=== PATIENT | female | born 1995 | race African-American/Black ===

== ENCOUNTER 2020-01-29 15:22 | Observation (INO) | payer OTHER, SELFPAY ==
[2020-01-29] VITALS (9 sets, daily range): BP systolic 103–126; BP diastolic 65–89; PULSE 91–116; TEMP 36.8; BMI 27.3
--- NOTE | 2020-01-29 16:26 | OBADM ---
This patient, Layla Barger, admitted to the OB room Labor/Delivery/Recovery 103 for observation. Patient/family oriented to hospital policies and general routines including ID bracelet, bed and alarms, visiting hours, pain management, procedures, bathroom and other care routines, personal items, smoking policy, room service/diet, and visiting hours. Patient/Family are encouraged to report perceived risks to care and to ask questions if they do not understand what they are told or what they should do.
--- NOTE | 2020-02-05 07:07 | PM.OBTRLD ---
OB - Triage/Final Diagnosis Visit Information Reason for evaluation: threatened labor
== END 2020-01-29 17:55 | disposition home or self-care (01) ==
PROVIDERS: Admitting Provider Obstetrics & Gynecology; PCP Obstetrics & Gynecology; Visit Provider Obstetrics & Gynecology
DX: O47.1 False labor at or after 37 completed weeks of gestation (principal); Z3A.41 41 weeks gestation of pregnancy
CPT/HCPCS: G0378; G0379

== ENCOUNTER 2020-01-30 16:46 | Inpatient (IN) | payer OTHER, SELFPAY ==
[2020-01-30] VITALS (11 sets, daily range): BP systolic 97–117; BP diastolic 59–89; PULSE 82–252; TEMP 36.4–37.2; BMI 27.3
--- NOTE | 2020-01-30 16:46 | LDADM ---
This patient, Layla Barger, was admitted to Labor/Delivery/Recovery 106 on 01/30/20 at 16:46. Plans for labor, pain management and were discussed with patient. Patient/family oriented to hospital policies and general routines including ID bracelet, bed and alarms, visiting hours, pain management, procedures, bathroom and other care routines, personal items, smoking policy, room service/diet and guest tray routines, security routines, and visiting hours. Patient/Family are encouraged to report perceived risks to care and to ask questions if they do not understand what they are told or what they should do. See OBIX for further documentation.
[2020-01-30] MEDS: AMPICILLIN 2 GM/NS 100 ML 2 GM/100 ML BAG IVPB (20:01)
[2020-01-30] MEDS: LACTATED RINGERS 1,000 ML 125 ML IV CONT (20:02)
[2020-01-30 20:08] LABS: Basophils Percent Auto 0.2 % (0.2-1.2); Hematocrit 38.9 % (37.0-47.0); Immature Granulocyte Absolute 0.07 K/mm3 (0.00-0.031); Immature Granulocyte Percent A 0.6 % (0-0.5); Lymphocytes Absolute Auto 0.95 K/mm3 (0.9-3.2); Lymphocytes Percent Auto 7.9 % (18.3-44.2); Mean Corpuscular HGB Conc 30.8 g/dl (32-36); Mean Corpuscular Hemoglobin 25.1 pg (26-34); Mean Corpuscular Volume 81.4 fl (80-100); Mean Platelet Volume 10.3 fl (7.4-10.4); Monocytes Absolute Auto 0.6 K/mm3 (0.1-0.6); Monocytes Percent Auto 4.8 % (2.6-8.5); Neutrophils Absolute Auto 10.3 K/mm3 (1.3-6.7); Neutrophils Percent Auto 86.5 % (45.5-73.1); Platelet Count Result 245 k/mm3 (150-375); Red Blood Count 4.78 M/mm3 (4.2-5.4); Red Cell Distribution Width 18.7 % (11.5-14.5)
[2020-01-30 20:51] LABS: Hepatitis B Surface Antigen Negative (Negative)
[2020-01-30 21:01] LABS: HIV 1/2 Ab P24 Ag Result Negative (Negative)
[2020-01-30 21:08] LABS: Rubella IgG Antibody 42.9 IU/ML
[2020-01-30] MEDS: OXYTOCIN 30 UNITS/NS 500 ML 30 UNITS/500 ML BAG 999 UNITS IV CONT (21:32)
--- NOTE | 2020-01-30 21:55 | WPDHPUPDATE1 ---
History and Physical Update Update Date/Time: 01/30/20 21:55 History and Physical has been reviewed, including an updated exam of the patient. There are NO changes in the patient's condition. Risks, benefits, and alternatives have been discussed and questions answered. Patient agrees to proceed with procedure.
--- NOTE | 2020-01-30 21:55 | WPDOBADMIT ---
Obstetrics - Admit Note Admission Note: record reviewed. No pertinent additions to the history and/or any subsequent changes in the physical findings that are not consistent with the expected course of the were found. Additions to the history and/or subsequent changes in the physical findings follow. None.
--- NOTE | 2020-01-30 21:58 | P.PCNOB_ITS ---
OB - Delivery Note Procedure Delivery date: 01/30/20 Route of delivery: Laceration description: Perineal - 2nd Degree Delivery repair: chromic Specimen: Yes (placenta) Estimated blood loss (mL): 30 Anesthesia type: Local Disposition: floor Narrative: Patient prepped and draped in the usual manner for this procedure. Maternal expulsive efforts delivered vertex in occiput posterior position. Rest of baby was readily delivered without difficulty. Placenta delivered spontaneously. Cervix exam vulva were inspected with second-degree laceration noted. [place] of the vaginal laceration was located and using 2 0 chromic in a running interlocking manner the vaginal mucosa was approximated. Deep tissue was also approximated in interlocking sutures with 2 0 chromic. A subcuticular manner approximating the perineal tissue. There was minimal bleeding good approximation was noted at this point seizure was considered terminated. The postop condition mother and baby both excellent. Baby Weeks of gestation at delivery: 41 Infant gender: Male Weight (pounds): 6 Weight (ounces): 8 presentation: vertex position: Right Occiput Posterior Placenta delivery description: Spontaneous cord vessel description: 3 Vessels score one minute: 8 score five minutes: 9
[2020-01-30] MEDS: OXYTOCIN 30 UNITS/NS 500 ML 30 UNITS/500 ML BAG 125 UNITS IV CONT (22:50)
[2020-01-30] MEDS: IBUPROFEN 600 MG TABLET PO (23:55)
[2020-01-31] VITALS: BP 109/72; PULSE 124
[2020-01-31] MEDS: BENZOCAINE 20% AER SPR (*SP) 56 GM CAN 1 SPRAY TOPICAL (00:07)
[2020-01-31] MEDS: WITCH HAZEL 40 PADS 1 PAD TOPICAL (00:11)
[2020-01-31 00:18] VITALS: BP 124/74; PULSE 149
[2020-01-31 00:45] VITALS: BP 106/78; PULSE 117; RESP 12; TEMP 36.7
[2020-01-31 01:00] VITALS: BP 116/79; PULSE 119; RESP 12
--- NOTE | 2020-01-31 01:16 | PC.NURSE ---
0027 Pt to floor accompanied by baby in crib and staff. plan of care and floor routines explained to pt and she voices understanding. Mom encouraged to make needs and concerns known to staff
[2020-01-31 06:18] LABS: Hematocrit 26.4 % (37.0-47.0); Hemoglobin 8.3 g/dL (12.0-15.0)
[2020-01-31 07:39] VITALS: BP 109/75; PULSE 113; RESP 18; TEMP 36.9; O2SAT 99
[2020-01-31] MEDS: MULTIVIT/MIN/PREN/FOL AC/IRON TABLET 1 TAB PO (10:29)
[2020-01-31 10:31] LABS: Rapid Plasma Reagin Non-Reactive (NonReactive)
--- NOTE | 2020-01-31 11:33 | P.DS_ITS ---
OB - DS: Summary OB Procedures : None OB Procedures Intrapartum: Spontaneous Vag Delivery OB Procedures: : None Time Spent with Patient Time attestation: Total time spent providing and/or coordinating discharge services: DS: Data Data Completed and Pending Pending studies at discharge: Pending at discharge 01/31/20 07:44 Surgical [PTH] 2138 Labs on day of discharge: Labs from last 24 hours 01/31/20 01/30/20 01/30/20 05:44 20:02 20:02 WBC RBC Hgb 8.3 L D Hct 26.4 L MCV MCH MCHC RDW Plt Count MPV Immature Gran % (Auto) Neut % (Auto) Lymph % (Auto) [place] % (Auto) Eos % (Auto) Baso % (Auto) Lymph # (Auto) [place] # (Auto) Eos # (Auto) Baso # (Auto) Abs Immat Gran (auto) Absolute Neuts (auto) Absolute Nucleated RBC Nucleated RBC % RPR Hep Bs Antigen Negative HIV 1&2 Ab/P24 Ag 4thGn Rubella IgG Antibody Blood Type B Positive Antibody Screen Negative 01/30/20 01/30/20 01/30/20 20:02 20:02 20:02 WBC 12.0 H RBC 4.78 Hgb 12.0 Hct 38.9 MCV 81.4 MCH 25.1 L MCHC 30.8 L RDW 18.7 H Plt Count 245 MPV 10.3 Immature Gran % (Auto) 0.6 H Neut % (Auto) 86.5 H Lymph % (Auto) 7.9 L [place] % (Auto) 4.8 Eos % (Auto) 0.0 Baso % (Auto) 0.2 Lymph # (Auto) 0.95 [place] # (Auto) 0.6 Eos # (Auto) 0.0 Baso # (Auto) 0.0 Abs Immat Gran (auto) 0.07 H Absolute Neuts (auto) 10.3 H Absolute Nucleated RBC 0.0 Nucleated RBC % 0.0 RPR Non-reactive Hep Bs Antigen HIV 1&2 Ab/P24 Ag 4thGn Rubella IgG Antibody 42.9 Blood Type Antibody Screen 01/30/20 20:02 WBC RBC Hgb Hct MCV MCH MCHC RDW Plt Count MPV Immature Gran % (Auto) Neut % (Auto) Lymph % (Auto) [place] % (Auto) Eos % (Auto) Baso % (Auto) Lymph # (Auto) [place] # (Auto) Eos # (Auto) Baso # (Auto) Abs Immat Gran (auto) Absolute Neuts (auto) Absolute Nucleated RBC Nucleated RBC % RPR Hep Bs Antigen HIV 1&2 Ab/P24 Ag 4thGn Negative Rubella IgG Antibody Blood Type Antibody Screen Discharge Plan Discharge Discharging Clinician: Gilberto Mcnulty Anticipated Discharge Date/Time: 02/01/20 11:00 Patient Disposition: Home, Self-Care Activity: as tolerated Diet: as tolerated Patient Instructions: Antibiotic Form Stand Alone Forms: General Discharge Information Follow-up/Referrals: UNKNOWN,DOCTOR [Primary Care Provider] - 3 Weeks Discharge Medications: New ibuprofen 600 mg Tablet 600 mg PO Q6H PRN (Reason: Cramping) Qty: 30 RF: 0 Continued
--- NOTE | 2020-01-31 11:39 | PM.OBDSVD ---
OB - DS: Summary OB Procedures : None OB Procedures Intrapartum: Spontaneous Vag Delivery OB Procedures: : None Time Spent with Patient Time attestation: Total time spent providing and/or coordinating discharge services: DS: Data Data Completed and Pending Pending studies at discharge: Pending at discharge 01/31/20 07:44 Surgical [PTH] 2138 Labs on day of discharge: Labs from last 24 hours 01/31/20 01/30/20 01/30/20 05:44 20:02 20:02 WBC RBC Hgb 8.3 L D Hct 26.4 L MCV MCH MCHC RDW Plt Count MPV Immature Gran % (Auto) Neut % (Auto) Lymph % (Auto) [place] % (Auto) Eos % (Auto) Baso % (Auto) Lymph # (Auto) [place] # (Auto) Eos # (Auto) Baso # (Auto) Abs Immat Gran (auto) Absolute Neuts (auto) Absolute Nucleated RBC Nucleated RBC % RPR Hep Bs Antigen Negative HIV 1&2 Ab/P24 Ag 4thGn Rubella IgG Antibody Blood Type B Positive Antibody Screen Negative 01/30/20 01/30/20 01/30/20 20:02 20:02 20:02 WBC 12.0 H RBC 4.78 Hgb 12.0 Hct 38.9 MCV 81.4 MCH 25.1 L MCHC 30.8 L RDW 18.7 H Plt Count 245 MPV 10.3 Immature Gran % (Auto) 0.6 H Neut % (Auto) 86.5 H Lymph % (Auto) 7.9 L [place] % (Auto) 4.8 Eos % (Auto) 0.0 Baso % (Auto) 0.2 Lymph # (Auto) 0.95 [place] # (Auto) 0.6 Eos # (Auto) 0.0 Baso # (Auto) 0.0 Abs Immat Gran (auto) 0.07 H Absolute Neuts (auto) 10.3 H Absolute Nucleated RBC 0.0 Nucleated RBC % 0.0 RPR Non-reactive Hep Bs Antigen HIV 1&2 Ab/P24 Ag 4thGn Rubella IgG Antibody 42.9 Blood Type Antibody Screen 01/30/20 20:02 WBC RBC Hgb Hct MCV MCH MCHC RDW Plt Count MPV Immature Gran % (Auto) Neut % (Auto) Lymph % (Auto) [place] % (Auto) Eos % (Auto) Baso % (Auto) Lymph # (Auto) [place] # (Auto) Eos # (Auto) Baso # (Auto) Abs Immat Gran (auto) Absolute Neuts (auto) Absolute Nucleated RBC Nucleated RBC % RPR Hep Bs Antigen HIV 1&2 Ab/P24 Ag 4thGn Negative Rubella IgG Antibody Blood Type Antibody Screen Discharge Plan Discharge Discharging Clinician: Gilberto Mcnulty Anticipated Discharge Date/Time: 02/01/20 11:00 Patient Disposition: Home, Self-Care Activity: as tolerated Diet: as tolerated Patient Instructions: Antibiotic Form Stand Alone Forms: General Discharge Information Follow-up/Referrals: UNKNOWN,DOCTOR [Primary Care Provider] - 3 Weeks Discharge Medications: New ibuprofen 600 mg Tablet 600 mg PO Q6H PRN (Reason: Cramping) Qty: 30 RF: 0 Continued PNV-DHA 27 mg iron-1 mg -300 mg Capsule 1 cap PO DAILY RF: 0 Date of admission: 01/30/20 16:46 Primary Care Provider: UNKNOWN,DOCTOR Admitting Provider: Gilberto Mcnutly Attending physician on admission: Gilberto Mcnulty
--- NOTE | 2020-01-31 13:55 | PC.NURSE ---
1400 continued: Infant attempted to breast several times without nipple shield, was unable to latch and draw nipple in. did may a few eager attempts, before latching with shield.
--- NOTE | 2020-01-31 14:00 | PC.NURSE ---
Mother called out for assist with feeding. Mother states she is using the nipple shield for most feedings. is sleepy this feeding. Reviewed infant may be sleepy and need to be stimulate to wake after circumcision. Discussed nipple shield precautions and possible complications. Instructions given on application and cleaning of shield. Patient able to return demonstration on proper application of shield. Discussed the need to initiate pumping if continues to nurse with the shield. Patient verbalizes understanding. Reviewed infant feeding cues, frequencies, duration of feedings, feeding elimination flow sheet, and signs of adequate intake. Demonstrated stimulation techniques to wake for feeding. Assisted with to breast. Reviewed positioning/alignment in football, holding breast in C hold and guided asymmetrical latch on. Discussed rational for each. After several attempts over 15 minutes, was able to latch correctly. nursed eagerly, with steady draws and occasional swallowing noted. Reviewed signs of a correct latch, effective nursing and suck swallow ratio. was able to maintain latch without discomfort to mother. Nipple care reviewed. Instructed mother to call out for RN assistance if she is unable to latch infant for feeding or she has discomfort with nursing. Instructed feeding should be initiated three hours from start of last feeding or if feeding cues are noted before. Mother voiced understanding of information shared.
--- NOTE | 2020-01-31 14:35 | PC.NURSE ---
Breast pump provided due to nipple shield use. Instructions given on breast pump care and usage, pumping schedule, nipple care, and collection and storage of breast milk. Encouraged [id number], breast massage and manual expression to stimulate supply. Assessed patient for correct flange size, placement and draw. Patient verbalizes and demonstrates understanding of instructions.
--- NOTE | 2020-01-31 20:22 | PM.OBTRLD ---
OB - Triage/Final Diagnosis Visit Information Reason for evaluation: threatened labor Evaluation Laboratory results: Laboratory Tests 01/30/20 01/30/20 01/30/20 20:02 20:02 20:02 WBC 12.0 H RBC 4.78 Hgb 12.0 Hct 38.9 MCV 81.4 MCH 25.1 L MCHC 30.8 L RDW 18.7 H Plt Count 245 MPV 10.3 Immature Gran % (Auto) 0.6 H Neut % (Auto) 86.5 H Lymph % (Auto) 7.9 L [place] % (Auto) 4.8 Eos % (Auto) 0.0 Baso % (Auto) 0.2 Lymph # (Auto) 0.95 [place] # (Auto) 0.6 Eos # (Auto) 0.0 Baso # (Auto) 0.0 Abs Immat Gran (auto) 0.07 H Absolute Neuts (auto) 10.3 H Absolute Nucleated RBC 0.0 Nucleated RBC % 0.0 RPR Hep Bs Antigen HIV 1&2 Ab/P24 Ag 4thGn Negative Rubella IgG Antibody 42.9 Blood Type Antibody Screen 01/30/20 01/30/20 01/30/20 20:02 20:02 20:02 WBC RBC Hgb Hct MCV MCH MCHC RDW Plt Count MPV Immature Gran % (Auto) Neut % (Auto) Lymph % (Auto) [place] % (Auto) Eos % (Auto) Baso % (Auto) Lymph # (Auto) [place] # (Auto) Eos # (Auto) Baso # (Auto) Abs Immat Gran (auto) Absolute Neuts (auto) Absolute Nucleated RBC Nucleated RBC % RPR Non-reactive Hep Bs Antigen Negative HIV 1&2 Ab/P24 Ag 4thGn Rubella IgG Antibody Blood Type B Positive Antibody Screen Negative 01/31/20 05:44 WBC RBC Hgb 8.3 L D Hct 26.4 L MCV MCH MCHC RDW Plt Count MPV Immature Gran % (Auto) Neut % (Auto) Lymph % (Auto) [place] % (Auto) Eos % (Auto) Baso % (Auto) Lymph # (Auto) [place] # (Auto) Eos # (Auto) Baso # (Auto) Abs Immat Gran (auto) Absolute Neuts (auto) Absolute Nucleated RBC Nucleated RBC % RPR Hep Bs Antigen HIV 1&2 Ab/P24 Ag 4thGn Rubella IgG Antibody Blood Type Antibody Screen Vital signs: Vital Signs - 24 hr 01/30/20 20:41 01/30/20 21:00 01/30/20 21:33 Temperature 37.2 C 36.4 C L Pulse Rate 100 Respiratory Rate Blood Pressure 117/78 Pulse Oximetry 01/30/20 22:09 01/30/20 22:15 01/30/20 22:30 Temperature Pulse Rate 141 H 148 H 82 Respiratory Rate Blood Pressure 111/71 101/73 103/87 Pulse Oximetry 01/30/20 22:45 01/30/20 23:00 01/30/20 23:15 Temperature Pulse Rate 252 H 137 H 120 H Respiratory Rate Blood Pressure 102/89 97/59 L 100/66 Pulse Oximetry 01/30/20 23:30 01/30/20 23:45 01/31/20 00:00 Temperature Pulse Rate 125 H 125 H 124 H Respiratory Rate Blood Pressure 109/68 98/67 L 109/72 Pulse Oximetry 01/31/20 00:18 01/31/20 00:45 01/31/20 01:00 Temperature 36.7 C Pulse Rate 149 H 117 H 119 H Respiratory Rate 12 12 Blood Pressure 124/74 106/78 116/79 Pulse Oximetry 01/31/20 07:39 Temperature 36.9 C Pulse Rate 113 H Respiratory Rate 18 Blood Pressure 109/75 Pulse Oximetry 99
[2020-01-31 20:30] VITALS: BP 104/61; PULSE 116; RESP 16; TEMP 36.8; O2SAT 98
[2020-02-01 07:37] VITALS: BP 108/63; PULSE 94; RESP 16; TEMP 36.9; O2SAT 99
--- NOTE | 2020-02-01 11:30 | PC.NURSE ---
Parents continue to struggle with feeding freq for infant. Mother reports it can take up to 40 minutes to get in correct positioning/alignment for feeding. Mother states is sleepy and does not always latch quickly and may take up to 30 minutes to get to latch. Mother is feeding every 4-5 hours, reviewed needs to be fed every 3 hours if , before if feeding cues are noted. Reviewed stimulation of milk supply, reviewing mother needs to stimulate breasts every 2-3 hours for milk supply. Suggested mother initiate supplementation of 15-20 mls EBM/formula after each /attempt every three hours. Parents are in agreement of feeding plan. While FOB is supplementing , mother will pump for 10-15 minutes. Assisted mother with a pump thru her insurance and assisted parents with supplementation of infant. Stressed the importance of a regular feeding plan and waking infant to feed if needed. is currently meeting outcomes for weight, output, jaundice and feeding frequencies. Stressed to keep accurate records of all feeding/elimination on blue flowsheet provided. Advised parents not to discontinue supplementation, until infant is observed feeding by WIC or follow up RN. Mother states she feels confident to continue feeding plan stated above at home. Reviewed transition to breast milk, signs of adequate intake, and engorgement/relief. Instructed to call ICP if intake/output less than required. Reviewed regular medications mother is taking. Information provided per Arpita. Reviewed community resources on the [employer] website and in the Mom/Baby guide. Information on outpatient services provided. Mother has no further questions at this time.
--- NOTE | 2020-02-01 18:31 | PC.NURSE ---
Patient viewed the discharge video Mother & Baby Care, The First Two Weeks . Patient was given the opportunity and encouraged to ask questions. Patient verbalized understanding of information shared and has been given the mother/baby guide for home reference.
--- NOTE | 2020-02-03 07:00 | PM.OBDSVD ---
DS: Diagnosis Admitting Diagnosis Admitting Diagnosis: Encounter for supervision of normal , unspecified, third trimester OB - DS: Summary OB Procedures : None OB Procedures Intrapartum: Spontaneous Vag Delivery OB Procedures: : None Time Spent with Patient Time attestation: Total time spent providing and/or coordinating discharge services: DS: Data Data Completed and Pending Completed studies during hospitalization: Pending at discharge 01/31/20 07:44 Surgical [PTH] 2138 Discharge Plan Discharge Discharging Clinician: Gilberto Mcnulty Anticipated Discharge Date/Time: 02/01/20 11:00 Patient Disposition: Home, Self-Care Activity: as tolerated Diet: as tolerated Discharge Instructions: Education: Mom and Baby Guide Given to: Patient Follow-Up: Call your delivering provider's office for an appointment to be seen in: 3 weeks [facility]. Appointment Date/Time: Friday02/02/2020 at 11:00 am Call [phone] if you are unable to keep your appointment time. BREAST CARE: 1. Wear a snug supportive bra. 2. For engorgement discomfort: Breast Feeding: A. Apply warm moist washcloths B. Express milk as needed to relieve engorgement C. Wear loose clothing Bottle Feeding: A. May apply ice packs 3. For sore nipples: A. Identify correct latch-on B. Apply warm moist washcloths before and after nursing C. Air dry nipples after nursing D. May apply Lansinoh cream to nipples EPISIOTOMY/PERINEAL CARE: 1. Until bleeding stops, use your janell bottle after urinating 2. Change your pad frequently throughout the day 3. You may take sitz baths several times a day (run warm water and sit in bathtub for 20 minutes.) Do NOT bathe in the water 4. No tub baths until seen by your physician - You may shower ACTIVITY: 1. Rest as much as possible. 2. Do not exercise or lift anything heavier than your baby (such as laundry or other children.) 3. Avoid stairs or driving as much as possible. 4. Do not put anything into the vagina. No douching, tampons, or sexual activity until seen by physician. NOTIFY PHYSICIAN IF YOU HAVE ANY QUESTIONS OR IF ANY OF THE FOLLOWING SYMPTOMS OCCUR: 1. If your episiotomy or incision becomes red, swollen, or more painful than what you have experienced in the hospital. 2. If your vaginal bleeding becomes foul smelling. 3. If your vaginal bleeding becomes more heavy than a period or if your bleeding changes from pink to bright red. However, you may pass an occasional walnut-sized clot once or twice for the first week . 4. If you experience a sharp, shooting pain in you calves. 5. If you discover a hard, reddened area on your breast or if you experience flu-like symptoms. DIET: 1. Eat regular, well-balanced meals. 2. Drink plenty of fluids daily. If , drink to thirst. Follow-up/Referrals: UNKNOWN,DOCTOR [Primary Care Provider] - 3 Weeks Discharge Medications: New ibuprofen 600 mg Tablet 600 mg PO Q6H PRN (Reason: Cramping) Qty: 30 RF: 0 Continued PNV-DHA 27 mg iron-1 mg -300 mg Capsule 1 cap PO DAILY RF: 0 Date of admission: 01/30/20 16:46 Primary Care Provider: UNKNOWN,DOCTOR Admitting Provider: Gilberto Mcnulty Discharge Date/Time: 02/01/20 21:30 Attending physician on admission: Gilberto Mcnulty
--- NOTE | 2020-02-03 07:01 | PM.OBTRLD ---
OB - Triage/Final Diagnosis Visit Information Reason for evaluation: threatened labor Evaluation Laboratory results: Laboratory Tests 01/30/20 01/30/20 01/30/20 20:02 20:02 20:02 WBC 12.0 H RBC 4.78 Hgb 12.0 Hct 38.9 MCV 81.4 MCH 25.1 L MCHC 30.8 L RDW 18.7 H Plt Count 245 MPV 10.3 Immature Gran % (Auto) 0.6 H Neut % (Auto) 86.5 H Lymph % (Auto) 7.9 L [place] % (Auto) 4.8 Eos % (Auto) 0.0 Baso % (Auto) 0.2 Lymph # (Auto) 0.95 [place] # (Auto) 0.6 Eos # (Auto) 0.0 Baso # (Auto) 0.0 Abs Immat Gran (auto) 0.07 H Absolute Neuts (auto) 10.3 H Absolute Nucleated RBC 0.0 Nucleated RBC % 0.0 RPR Hep Bs Antigen HIV 1&2 Ab/P24 Ag 4thGn Negative Rubella IgG Antibody 42.9 Blood Type Antibody Screen 01/30/20 01/30/20 01/30/20 20:02 20:02 20:02 WBC RBC Hgb Hct MCV MCH MCHC RDW Plt Count MPV Immature Gran % (Auto) Neut % (Auto) Lymph % (Auto) [place] % (Auto) Eos % (Auto) Baso % (Auto) Lymph # (Auto) [place] # (Auto) Eos # (Auto) Baso # (Auto) Abs Immat Gran (auto) Absolute Neuts (auto) Absolute Nucleated RBC Nucleated RBC % RPR Non-reactive Hep Bs Antigen Negative HIV 1&2 Ab/P24 Ag 4thGn Rubella IgG Antibody Blood Type B Positive Antibody Screen Negative 01/31/20 05:44 WBC RBC Hgb 8.3 L D Hct 26.4 L MCV MCH MCHC RDW Plt Count MPV Immature Gran % (Auto) Neut % (Auto) Lymph % (Auto) [place] % (Auto) Eos % (Auto) Baso % (Auto) Lymph # (Auto) [place] # (Auto) Eos # (Auto) Baso # (Auto) Abs Immat Gran (auto) Absolute Neuts (auto) Absolute Nucleated RBC Nucleated RBC % RPR Hep Bs Antigen HIV 1&2 Ab/P24 Ag 4thGn Rubella IgG Antibody Blood Type Antibody Screen
== END 2020-02-01 21:30 | disposition home or self-care (01) | DRG 560 ==
LOC: ANHLDR 19:24 → ANHOB2 01-31 00:31
PROVIDERS: Admitting Provider Obstetrics & Gynecology; Visit Provider Obstetrics & Gynecology
DX: O70.1 Second degree perineal laceration during delivery (principal); Z37.0 Single live birth; Z3A.41 41 weeks gestation of pregnancy
CPT/HCPCS: 36415; 85014; 85018; 85025; 86592; 86703; 86762; 86850; 86900; 86901; 87340; 88307; A9270; G0432; J0290; J2590; J7120

== ENCOUNTER 2022-02-26 13:05 | Outpatient (CLI) | payer OTHER, SELFPAY ==
--- NOTE | ~2022-02-26 | US_ITS ---
EXAMINATION: US OB follow up DATE: 02/26/2022 13:46 INDICATION: Encounter for supervision of normal during second trimester TECHNIQUE: Real-time ultrasound of the pelvis was performed. The interpreting radiologist was not pre sent for the study. COMPARISON: None. FINDINGS: There is a single living fetus in breech presentation. The placenta is anterior with caudal margin 2 .3 cm from the internal cervical os. heart rate is 167 beats per minute (bpm). The amniotic flu id volume is subjectively normal. The following biometric data were obtained: BPD: 3.6 cm -> 17 weeks 0 days Head circumference: 13.5 cm -> 17 weeks 0 days Abdominal circumference: 11.4 cm -> 17 weeks 1 days Femur length: 2.4 cm -> 17 weeks 1 days These measurements are concordant. Head circumference to abdominal circumference ratio: 1.19 (normal range 1.07-1.29). Estimated weight: 184 g (+/-) 28 g or 6 oz. (+/-) 1 oz. IMPRESSION: 1. Single living fetus in breech presentation with heart rate of 167 bpm. 2. Gestational age by ultrasound of 17 weeks 1 day(s) +/- 1 week(s) 1 day(s) with ultrasound estimate d date of delivery (FERN) of 08/05/2022. Estimated weight is 37th percentile by Hadlock criteria when 08/04/2022 is used as the EFRN. Please correlate with clinical information or earlier ultrasounds for most accurate FERN. 3. Low-lying anterior placenta with caudal margin 2.3 cm from the internal cervical os. Reviewed, dictated and finalized at location B. IMPRESSION: 1. Single living fetus in breech presentation with heart rate of 167 bpm. 2. Gestational age by ultrasound of 17 weeks 1 day(s) +/- 1 week(s) 1 day(s) wi th ultrasound estimated date of delivery (FERN) of 08/05/2022. Estimated we ight is 37th percentile by Hadlock criteria when 08/04/2022 is used as the FERN. Please correlate with clinical information or earlier ultrasounds for most accu rate FERN. 3. Low-lying anterior placenta with caudal margin 2.3 cm from the internal cerv ical os.
== END 2022-02-26 13:06 | disposition home or self-care (01) ==
LOC: ANHIMG 13:09
PROVIDERS: PCP Internal Medicine; Visit Provider Obstetrics & Gynecology
DX: O44.42 Low lying placenta NOS or without hemorrhage, second trimester (principal); Z3A.17 17 weeks gestation of pregnancy
CPT/HCPCS: 76816

== ENCOUNTER 2022-04-12 16:48 | Outpatient (CLI) | payer OTHER, SELFPAY ==
--- NOTE | ~2022-04-12 | US_ITS ---
US OB /maternal detail DATE: 04/12/2022 17:39 INDICATION: Normal supervision TECHNIQUE: Real-time imaging and Doppler analysis COMPARISON: 02/26/2022 obstetrical ultrasound FINDINGS: Live wagoner intrauterine gestation, fetus active and in variable presentation during the examination. Anterior placenta. Subjectively normal amount of amniotic fluid. No cerebral ventriculomegaly. Face and lips appear normal. The cerebellum appears normal. Normal cisterna magna. 4 chamber heart with normal left and right ventricular outflow tracts. diaphragm is intact. Fluid is demonstrated in the stomach and urinary bladder. The kidney s appear normal without hydronephrosis. Three-vessel umbilical cord with normal appearing insertion a t abdominal wall. extremities are intact. Biparietal diameter 5.51 cm; 22 weeks 6 days Head circumference 20.72 cm; 22 weeks 6 days Abdominal circumference 18.04 cm; 22 weeks 6 days Femur length 4.02 cm; 23 weeks 0 days. Composite age by Hadlock formula is 22 weeks 6 days +/- 1 week 4 day with FERN of 08/10/2022. Estimated weight is 546.1 g. Head circumference/abdominal circumference 1.15, within normal range of 1.05-1.21 Femur length/abdominal circumference 22.30, within normal range of 20.00-24.00 Femur length/head circumference 19.42, within normal range of 19.09, 120.71 IMPRESSION: Composite age by Hadlock formula is 22 weeks 6 days +/- 1 week 4 day with FERN of 2. Estimated weight is 546.1 g. Reviewed, dictated and finalized at Location [facility]. Reviewed, dictated and finalized at location A. IMPRESSION: Composite age by Hadlock formula is 22 weeks 6 days +/- 1 week 4 da y with FERN of 08/10/2022. Estimated weight is 546.1 g.
== END 2022-04-12 16:49 | disposition home or self-care (01) ==
PROVIDERS: PCP Internal Medicine; Visit Provider Obstetrics & Gynecology
DX: Z34.90 Encounter for supervision of normal pregnancy, unspecified, unspecified trimester (principal); Z3A.00 Weeks of gestation of pregnancy not specified
CPT/HCPCS: 76805